=== PATIENT | female | born 1955 | race Caucasian/White ===

== ENCOUNTER → 2017-03-03 | Outpatient (CLI) | payer MEDICARE ==
[~2017-03-03] MED LIST: ASPI325T PO; FISH300C2 PO; HAWTHORNE PO; [UNRECOGNIZED DRUG - CODE] PO; [UNRECOGNIZED DRUG - OTHER] PO
== END ==
LOC: CLAB 11:34
PROVIDERS: ATTEND Specialist
DX: R74.8 Abnormal levels of other serum enzymes (principal); B18.2 Chronic viral hepatitis C; I48.91 Unspecified atrial fibrillation; M19.90 Unspecified osteoarthritis, unspecified site; M79.609 Pain in unspecified limb; F43.22 Adjustment disorder with anxiety; I10 Essential (primary) hypertension; R94.5 Abnormal results of liver function studies; Z13.21 Encounter for screening for nutritional disorder; Z13.220 Encounter for screening for lipoid disorders
CPT/HCPCS: 36415; 82140

== ENCOUNTER → 2017-03-14 | Outpatient (CLI) | payer MEDICARE ==
--- NOTE | 2017-03-16 13:09 | HM ---
Date Performed: 03/14/2017 Time Performed: 11:04:00 HOOKUP DATE: 03/14/17 11:04:00 AM Mon ANALYSIS START TIME: 03/14/2017 11:09:00 AM ANALYSIS END TIME: 03/15/2017 11:13:00 AM PATIENT AGE: 61 PATIENT HEIGHT PATIENT WEIGHT DRUG LIST PATIENT DIAGNOSIS: AFIB TEST NARRATIVE: The patient's average heart rate was 72 BPM. Heart rates greater than 120 B PM were noted < 1% of the time. Heart rates less than 50 BPM were noted < 1% of the time. 20 petrona ses exceeding 2.0 seconds were noted. The longest pause of 2.6 seconds occurred at 11:12:30 PM Mon. 5 ventricular ectopics, which represented < 1% of the total beat count, were noted. The highest ventricular ectopic frequency occurred from 02:00 AM to 03:00 AM Tue. During this time 3 VE(s) occur red. Ventricular ectopics were observed as 5 isolated beat(s) only. No couplets or runs were noted. No supraventricular ectopics were noted. No episodes of ST depression (defined as -1.0 mm or more) were noted in channel 1. No episodes of ST depression (defined as -1.0 mm or more) were noted in channel 2. No episodes of ST depression (defined as -1.0 mm or more) were noted in channel 3. TEST INTERPRETATION: atrial fibrillation with controlled ventricular rate and rare bradycardia Signed by : Vickey Chun
== END ==
LOC: HCAV 10:17
PROVIDERS: ATTEND Specialist
DX: I10 Essential (primary) hypertension (principal); I48.91 Unspecified atrial fibrillation; R94.31 Abnormal electrocardiogram [ECG] [EKG]
CPT/HCPCS: 93225; 93226